=== PATIENT | female | born 1965 | race Caucasian/White ===

== ENCOUNTER 2018-06-05 09:06 | Observation (INO) | payer MEDICAID ==
[2018-06-05 09:57] LABS: ADD MAN DIFF? NO
[2018-06-05] MEDS: ASPIRIN 325 MG TAB PO (09:57)
[2018-06-05 10:00] LABS: BASOPHILS % 0.3 % (0.0-2.0); EOSINOPHILS # 0.1 10^3/ul (0.0-0.5); EOSINOPHILS % 1.2 % (0.0-7.0); HEMATOCRIT 43.4 % (37.0-47.0); HEMOGLOBIN 14.5 g/dl (12.0-16.0); LYMPHOCYTES # 3.3 10^3/ul (0.8-2.9); LYMPHOCYTES % 47.7 % (15.0-51.0); MEAN CORPUSCULAR HEMOGLOBIN 29.8 pg (29.0-33.0); MEAN CORPUSCULAR HGB CONC 33.4 g/dl (32.0-37.0); MEAN CORPUSCULAR VOLUME 89.1 fl (82.0-101.0); MEAN PLATELET VOLUME 10.2 fl (7.4-10.4); MONOCYTE # 0.4 10^3/ul (0.3-0.9); MONOCYTES % 5.8 % (0.0-11.0); NEUTROPHIL # 3.1 10^3/ul (1.6-7.5); NEUTROPHILS % 44.6 % (39.0-77.0); PLATELET COUNT 353 10^3/UL (140-415); RED BLOOD COUNT 4.87 10^6/ul (4.20-5.40); RED CELL DISTRIBUTION WIDTH 12.8 % (11.5-14.5)
[2018-06-05 10:00] LABS: WHITE BLOOD COUNT 6.8 10^3/ul (4.8-10.8)
[2018-06-05 10:21] LABS: INR 0.86; PARTIAL THROMBOPLASTIN TIME 29.2 Sec (23.0-35.0); PROTIME 11.8 Sec (11.9-14.9); PT RATIO 0.9
[2018-06-05 10:33] LABS: ALANINE AMINOTRANSFERASE 41 IU/L (13-69); ALBUMIN 4.2 g/dl (3.3-4.9); ALBUMIN/GLOBULIN RATIO 0.93; ALKALINE PHOSPHATASE 80 IU/L (42-121); ANION GAP 12 (8-16); ASPARTATE AMINO TRANSFERASE 46 IU/L (15-46); BILIRUBIN,INDIRECT 0.5 mg/dl (0-1.1); BILIRUBIN,TOTAL 0.5 mg/dl (0.2-1.3); BLOOD UREA NITROGEN 13 mg/dl (7-20); CALCIUM 9.9 mg/dl (8.4-10.2); CARBON DIOXIDE 30 mmol/L (21-31); CHLORIDE 105 mmol/L (97-110); CREATINE KINASE 143 IU/L (23-200); GLUCOSE 103 mg/dl (70-220); LIPASE 130 U/L (23-300); POTASSIUM 4.1 mmol/L (3.5-5.1); SODIUM 143 mmol/L (135-144); TOTAL PROTEIN 8.7 g/dl (6.1-8.1)
[2018-06-05 10:45] LABS: B-TYPE NATRIURETIC PEPTIDE 29 PG/ML (0-125); CK INDEX 0.8; CK-MB 1.17 ng/ml (0.0-2.4); TROPONIN-I < 0.012 ng/ml (0.000-0.120)
[2018-06-05] MEDS: NITROGLYCERIN 2% 1 GM OINT PKT TD (11:59)
[2018-06-05] MEDS ORDERED: ONDANSETRON 4 MG INJ IV ×2 (12:30→14:00)
[2018-06-05] MEDS ORDERED: ACETAMINOPHEN 325 MG TAB PO (12:30)
[2018-06-05] MEDS ORDERED: NITROGLYCERIN (SL) 0.4 MG TAB SL (14:00)
[2018-06-05] MEDS ORDERED: LORAZEPAM 0.5 MG TAB PO (14:00)
[2018-06-05] MEDS ORDERED: ZOLPIDEM 5 MG TAB PO (14:00)
[2018-06-05 14:46] LABS: CREATINE KINASE 119 IU/L (23-200)
[2018-06-05 14:59] LABS: CK INDEX 0.7; CK-MB 0.87 ng/ml (0.0-2.4); TROPONIN-I < 0.012 ng/ml (0.000-0.120)
[2018-06-05] MEDS: FAMOTIDINE 20 MG TAB PO ×2 (15:34→21:04)
[2018-06-05] MEDS: DOCUSATE SODIUM 100 MG CAP PO ×2 (15:34→21:04)
[2018-06-05] MEDS: ACETAMINOPHEN 325 MG TAB PO (18:33)
[2018-06-05 20:00] LABS: CREATINE KINASE 98 IU/L (23-200)
[2018-06-05 20:14] LABS: CK INDEX 0.7; TROPONIN-I < 0.012 ng/ml (0.000-0.120)
[2018-06-05] MEDS: ATORVASTATIN 10 MG TAB PO (21:04)
[2018-06-05] MEDS: HYDROCODONE/APAP (5/325) TAB PO (21:04)
[2018-06-06 05:46] LABS: ADD MAN DIFF? NO
[2018-06-06 05:58] LABS: BASOPHILS % 0.1 % (0.0-2.0); EOSINOPHILS # 0.2 10^3/ul (0.0-0.5); EOSINOPHILS % 1.8 % (0.0-7.0); HEMATOCRIT 37.1 % (37.0-47.0); HEMOGLOBIN 12.6 g/dl (12.0-16.0); LYMPHOCYTES # 3.4 10^3/ul (0.8-2.9); LYMPHOCYTES % 38.6 % (15.0-51.0); MEAN CORPUSCULAR HEMOGLOBIN 30.2 pg (29.0-33.0); MEAN PLATELET VOLUME 10.3 fl (7.4-10.4); MONOCYTE # 0.6 10^3/ul (0.3-0.9); MONOCYTES % 7.2 % (0.0-11.0); NEUTROPHIL # 4.6 10^3/ul (1.6-7.5); NEUTROPHILS % 52.1 % (39.0-77.0); PLATELET COUNT 312 10^3/UL (140-415); RED BLOOD COUNT 4.17 10^6/ul (4.20-5.40); RED CELL DISTRIBUTION WIDTH 13.1 % (11.5-14.5)
[2018-06-06 05:58] LABS: WHITE BLOOD COUNT 8.8 10^3/ul (4.8-10.8)
[2018-06-06 06:15] LABS: CREATINE KINASE 88 IU/L (23-200)
[2018-06-06 06:23] LABS: ALANINE AMINOTRANSFERASE 48 IU/L (13-69); ALBUMIN 3.4 g/dl (3.3-4.9); ALBUMIN/GLOBULIN RATIO 0.91; ALKALINE PHOSPHATASE 61 IU/L (42-121); ANION GAP 10 (8-16); ASPARTATE AMINO TRANSFERASE 36 IU/L (15-46); BILIRUBIN,INDIRECT 0.4 mg/dl (0-1.1); BILIRUBIN,TOTAL 0.4 mg/dl (0.2-1.3); BLOOD UREA NITROGEN 16 mg/dl (7-20); CALCIUM 9.2 mg/dl (8.4-10.2); CARBON DIOXIDE 26 mmol/L (21-31); CHLORIDE 107 mmol/L (97-110); CREATININE 0.69 mg/dl (0.44-1.00); GLUCOSE 100 mg/dl (70-220); POTASSIUM 3.9 mmol/L (3.5-5.1); SODIUM 139 mmol/L (135-144); TOTAL PROTEIN 7.1 g/dl (6.1-8.1)
[2018-06-06 06:26] LABS: CHOL/HDL RATIO 2.8 RATIO; HDL CHOLESTEROL 62 mg/dl (37-92); LDL CHOLESTEROL,CALCULATED 90 mg/dl; TRIGLYCERIDES 136 mg/dl (0-149)
[2018-06-06 06:26] LABS: CHOLESTEROL 179 mg/dl (100-200)
[2018-06-06 06:28] LABS: CK INDEX 0.7; CK-MB 0.61 ng/ml (0.0-2.4); TROPONIN-I < 0.012 ng/ml (0.000-0.120)
[2018-06-06 07:07] LABS: MAGNESIUM 2.1 mg/dl (1.7-2.5)
[2018-06-06 07:38] LABS: HEMOGLOBIN A1C 5.4 % (0-5.9)
[2018-06-06] MEDS: DOCUSATE SODIUM 100 MG CAP PO ×2 (09:11→20:34)
[2018-06-06] MEDS: FAMOTIDINE 20 MG TAB PO ×2 (09:11→20:34)
[2018-06-06] MEDS: ASPIRIN 81 MG TAB PO (09:11)
[2018-06-06] MEDS: REGADENOSON 0.4 MG/5 ML SYG (13:28)
[2018-06-06] MEDS: ATORVASTATIN 10 MG TAB PO (20:35)
[2018-06-07] MEDS: FAMOTIDINE 20 MG TAB PO (09:12)
[2018-06-07] MEDS: ASPIRIN 81 MG TAB PO (09:12)
[2018-06-07] MEDS: DOCUSATE SODIUM 100 MG CAP PO (09:12)
== END 2018-06-07 13:04 | disposition home or self-care (01) ==
LOC: E/R 09:06 → 6WM 12:11
DX: R07.9 Chest pain, unspecified (principal); E78.5 Hyperlipidemia, unspecified; R20.0 Anesthesia of skin; R94.31 Abnormal electrocardiogram [ECG] [EKG]; R73.03 Prediabetes
CPT/HCPCS: 36415; 70450; 71045; 78452; 80053; 80061; 82550; 82553; 83036; 83690; 83735; 83880; 84443; 84484; 85025; 85610; 85730; 93005; 93017; 93306; 99285-25; G0378